=== PATIENT | male | born 1990 | race Caucasian/White ===

== ENCOUNTER 2018-04-01 16:10 | Emergency (ER) | payer OTHER ==
--- NOTE | 2018-04-01 16:45 | EDM.PDOC ---
ED HPI GENERAL MEDICAL PROBLEM Right Neck Pain Score (Numeric/FACES): 1 <Shin Ludwig A - Last Filed: 04/01/18 17:30> - General Source of Information: Reports: Patient History Limitations: Reports: No Limitations - History of Present Illness Onset: Today Location: Reports: Head, Neck <Petrona Peters - Last Filed: 04/01/18 21:35> - General Chief Complaint: Trauma Stated Complaint: HEAD INJURY Time Seen by Provider: 04/01/18 16:22 - History of Present Illness INITIAL COMMENTS - FREE TEXT/NARRATIVE: 27 year old male presents for evaluation and treatment of a head injury. Reportedly injury occurred about 3 hours prior to arrival. Patient was riding a horse. The accident was unwitnessed. It sounds as if the horse reared up. We believe he fell backwards. Likely struck the occipital area of his head as well as the right side of his neck and right side of his head. He is unsure if he lost consciousness but feels this is likely. His is at the bedside and states that the incident was not witnessed but afterwards he seemed more agitated and had repetitive questioning. He currently is denying any vision changes, headache, nausea, vomiting, chest pain, shortness of breath, abdominal pain, numbness of tingling to the extremities, pain in arms or legs or pelvis. He states he felt lightheaded earlier. He has some minor neck discomfort to the right lateral neck. (Petrona Peters) Past Medical History - Past Health History Medical/Surgical History: Denies Medical/Surgical History <Petrona Peters - Last Filed: 04/01/18 21:35> Social & Family History - Family History Family Medical History: Noncontributory - Tobacco Use Smoking Status *Q: Never Smoker - Recreational Drug Use Recreational Drug Use: No <Petrona Peters - Last Filed: 04/01/18 21:35> Review of Systems - Review of Systems Review Of Systems: See Below Eyes: Denies: Vision Change Respiratory: Denies: Shortness of Breath Cardiovascular: Reports: Lightheadedness (earlier, now resolved). Denies: Chest Pain GI/Abdominal: Denies: Abdominal Pain, Nausea, Vomiting Musculoskeletal: Reports: Neck Pain (right lateral neck). Denies: Arm Pain, Back Pain, Leg Pain Neurological: Reports: Syncope (unsure but likely). Denies: Headache, Numbness , Tingling, Difficulty Walking <Petrona Peters - Last Filed: 04/01/18 21:35> ED EXAM, GENERAL - Physical Exam Exam: See Below Exam Limited By: No Limitations General Appearance: Alert, WD/WN, No Apparent Distress Eye Exam: Bilateral Eye: Normal Inspection, PERRL Ears: Normal External Exam, Normal Canal, Hearing Grossly Normal, Normal TMs Nose: Normal Inspection, No Blood Throat/Mouth: Normal Inspection, Normal Lips, Normal Teeth, Normal Oropharynx, Normal Voice, No Airway Compromise Head: Normocephalic. No: Facial Tenderness, Sinus Tenderness Neck: Supple, Tender Lateral (right lateral ) Respiratory/Chest: No Respiratory Distress, Lungs Clear, Normal Breath Sounds, Chest Non-Tender Cardiovascular: Normal Peripheral Pulses, Regular Rate, Rhythm GI/Abdominal: Normal Bowel Sounds, Soft, Non-Tender, No Distention Back Exam: Normal Inspection. No: Vertebral Tenderness Extremities: Normal Inspection, Non-Tender Neurological: Alert, Oriented (orientated to person and place; corrently identified month as march, unable to correctly identify day, stated year was 2016), Normal Gait, Memory Loss Recent Events Psychiatric: Normal Affect, Normal Mood Skin Exam: Warm, Dry, Normal Color, Erythema (superficial abrasions to the occipital region and the right lateral neck; area to the occipital region is approximately 5cm in diameter, area to the right laterla neck is approximately 5cm x 3cm ) <Petrona Peters - Last Filed: 04/01/18 21:35> Course <hSin Ludwig - Last Filed: 04/01/18 17:30> <Petrona Peters - Last Filed: 04/01/18 21:35> - Vital Signs Last Recorded V/S: Last Vital Signs Temp 98.6 F 04/01/18 18:45 Pulse 72 04/01/18 18:45 Resp 16 04/01/18 18:45 BP 120/77 04/01/18 18:45 Pulse Ox 99 04/01/18 18:45 - Re-Assessments/Exams Free Text/Narrative Re-Assessment/Exam: 04/01/18 17:31 The patient was a trauma minor. I went into see the patient. He has amnesia of the event. He was repeating himself. He has no headache. He has some mild right lateral neck palafox. He has no numbness or weakness. On exam he has no mid line cervical tenderness. He has no neurological deficits. He does not want a CT of his head. He does have a concussion. Petrona and I went over precautions and return instructions. I feel it is safe to discharge him home with no CT at this time. (Shin Ludwig) 04/01/18 16:[address] of the head and neck due to the mechanism of injury and his repetitive questioning. I did educate them he likely has a concussion, however, without imaging I cannot completely rule out a brain bleed. Patient is very concerned about the cost. A informed him several times that given there is no [facility] here in [place] there is no reason that the [facility] shouldn't cover his expenses here. I also informed him that [id number] and can assist with cost. He still very concerned about the cost. We ultimately decided, as he is a trauma alert minor Dr. Ludwig will come and see him as is our normal process. He is agreeable to stay in the ER for a short time but he does not want any imaging at this time. 04/01/18 16:50 Dr. Ludwig has seen the patient as this is trauma minor. He is also recommending a CT but given the patient's very concerned about cost agrees that it is unlikely he will have a bleed. Feels he is safe to discharge. 04/01/18 18:15 Monitored the patient in the ED for short time. He is starting to have some return of previous retrograde amnesia. He still denies any headache. No vomiting. He does still seem confused. I still do recommend a noncontrast head and neck CT. his and him feel comfortable foregoing this at this time. Is mostly due to cost concerns. Will discharge home at this time. Discharge instructions as documented. (Petrona Peters) Departure <Shin Ludwig - Last Filed: 04/01/18 17:30> - Departure Time of Disposition: 18:16 Condition: Fair - Discharge Information *PRESCRIPTION DRUG MONITORING PROGRAM REVIEWED*: No *COPY OF PRESCRIPTION DRUG MONITORING REPORT IN PATIENT DINH: No <Petrona Peters - Last Filed: 04/01/18 21:35> - Departure Disposition: Home, Self-Care 01 Clinical Impression: Concussion - Discharge Information Instructions: Concussion, Adult Referrals: PCP,None [Primary Care Provider] - Forms: ED Department Discharge Additional Instructions: Over the night recommend getting up every 2-3 hours. Please return to the ER if your symptoms change or worsen. In particular would like to see you for severe headaches not relieved by Tylenol or Motrin, seizures , changes in behavior such as increased agitation or combativeness, more than 2 episodes of vomiting or any other concerning symptom. Recommend follow-up with your primary care provider when you return home within one week. May take [id number] Tylenol or Motrin as needed for pain.
== END 2018-04-01 18:45 | disposition home or self-care (01) ==
LOC: JD.ED 16:10
DX: S06.0X9A Concussion with loss of consciousness of unspecified duration, initial encounter (principal); S10.91XA Abrasion of unspecified part of neck, initial encounter; V80.010A Animal-rider injured by fall from or being thrown from horse in noncollision accident, initial encounter
CPT/HCPCS: 99284